=== PATIENT | female | born 1990 | race Caucasian/White ===

== ENCOUNTER 2016-09-26 08:50 | Emergency (ER) | payer OTHER ==
--- NOTE | ~2016-09-26 | ER ---
PATIENT'S NAME: MARCO ADAME [facility] AGE: 26 Y [address] ROOM: [place] [id number] LOCATION: ED ADMIT DATE: 09/26/2016 ER/Outpatient Report DISCHARGE DATE: 09/26/2016 FAMILY PHYSICIAN: PHYSICIAN, NO ATTENDING PHYSICIAN: Ramiro Amador CHIEF COMPLAINT: Fever and shaking. HISTORY OF PRESENT ILLNESS: The patient had a pilonidal cyst removed from her gluteal cleft on Wednesday. Since then, she has progressively felt worse and worse. She is noted to have a fever but she has not taken anything for it. She was taking Percocet for the pain but ran out yesterday. She denies any other significant abnormalities at this time. She denies any urinary symptoms such as frequency, urgency, or burning. She has no respiratory complaints such as cough or shortness of breath. No other acute issues. She has felt a little bit nauseated, but has not vomited. PAST MEDICAL HISTORY: Documented on the record and reviewed by me. SOCIAL HISTORY: Documented on the record and reviewed by me. MEDICATIONS: Documented on the record and reviewed by me. ALLERGIES: DOCUMENTED ON THE RECORD AND REVIEWED BY ME. REVIEW OF SYSTEMS: All systems reviewed and negative except as noted in the HPI. PHYSICAL EXAMINATION: VITAL SIGNS: Blood pressure 125/73, pulse 142, respiratory rate 18, temp 102.4, SpO2 is 98% on room air. GENERAL: Age-appropriate female. No obvious pain or distress, sitting upright on the exam chair, crying. NEUROLOGIC: Awake and alert. GCS is 15. No focal deficits. No asymmetry. HEENT: Normocephalic, atraumatic. Eyes are PERRL. Oropharynx is clear and moist. NECK: Supple. Trachea is midline chest heart is regular tachycardia with no obvious murmurs. LUNGS: Clear to auscultation bilateral in all lung cates. PATIENT'S NAME: MARCO ADAME [facility] AGE: 26 Y [address] ROOM: [place], [place] [address] LOCATION: [facility] ADMIT DATE: 09/26/2016 ER/Outpatient Report DISCHARGE DATE: 09/26/2016 FAMILY PHYSICIAN: PHYSICIAN, NO ATTENDING PHYSICIAN: Ramiro Amador ABDOMEN: Soft, nontender, and nondistended. No rebound or guarding. BACK: Back is normal to inspection and palpation no spinal or CVA tenderness. The gluteal cleft was examined. The surgical site excision was noted and found to be with minimal drainage, no appreciable surrounding erythema. Her skin is all warm secondary to fever no focal findings. No fluctuance associated with it. The extremities are warm and well perfused. No edema or deformities. SKIN: Clean, dry, intact. It is very warm throughout. LABS AND X-RAYS: Procalcitonin 0.11. Urinalysis 25 leukocytes, 15 ketones one urobilinogen 10 blood micro with 20-50 WBCs, 10-20 epithelials 0-2 RBCs, few bacteria. Urine HCG was negative. Influenza A and B are negative. CBC with white count of 7.7, hemoglobin 15.2, and platelets of 210. INR is 1. Blood cultures are pending. CMS sodium is 134, potassium 3.7, chloride is 102, CO2 is 20, LFTs are slightly elevated with an alkaline phosphatase of 281, AST of 54, ALT is 135, GFR is 60, total bilirubin is 0.5. Lactate is 1.6. IMPRESSION: 1. Fever of undetermined etiology. 2. Transaminitis, mild. EMERGENCY DEPARTMENT COURSE: The patient was seen and evaluated as above. She was given Tylenol and ibuprofen for symptoms in addition to 2 L of normal saline. She was feeling much better. She has no hepatobiliary complaints at this time. Recommend close followup of that issue. I do not believe that she is septic from the recent abscess. Her presentation is most consistent with a viral illness. Recommend antipyresis and adequate volume rehydration. She was given a prescription for some [place] and Zofran to have at home. She needs to follow up with PCP as needed. She was given 50 mcg of fentanyl for pain and Zofran for nausea and was feeling much better. MD LAVONNE BRANDON/daniel /[id number] d: 09/26/16 1722 t: 09/29/16 1123, OUTPATIENT REPORT
[~2016-09-26 08:50] MED LIST: ACETAMINOPHEN325 MG PO; MOTRIN800 MG PO; PERCOCET 5-3251 EACH PO; PRENATAL 1+1)(P1 TAB PO
[2016-09-26 09:53] LABS: HEMATOCRIT 44.9 % (33.0-46.0); HEMOGLOBIN 15.2 g/dL (11.0-15.0); MCH 32.5 pg (27.0-34.0); MCHC 33.9 gm/dL (32.0-36.5); MCV 95.9 fl (83.0-98.0); MPV 10.5 fl (9.4-12.4); PLATELET COUNT 210 K/uL (150-450); RBC 4.68 M/uL (3.50-5.00); RDW-CV 13.5 % (11.9-14.6); WBC 7.7 K/uL (4.0-11.0)
[2016-09-26 09:57] LABS: BILIRUBIN URINE NEGATIVE (NEGATIVE); BLOOD URINE 10 /UL (NEGATIVE); COLOR URINE YELLOW (YELLOW); GLUCOSE URINE NEGATIVE (NEGATIVE); KETONE URINE 15 mg/dL (NEGATIVE); LEUKOCYTES URINE 25 /UL (NEGATIVE); NITRITE URINE NEGATIVE (NEGATIVE); PROTEIN URINE 30 mg/dL (NEGATIVE); SPEC GRAVITY URINE 1.015 (1.003-1.035); UROBILINOGEN URINE 1 mg/dL (NORMAL)
[2016-09-26 09:58] LABS: TURBIDITY URINE CLEAR (CLEAR)
[2016-09-26 10:03] LABS: INR - (THERAPEUTIC) 1.05 (0.92-1.07); PTT 36 SECONDS (25-32)
[2016-09-26 10:03] LABS: RBC URINE 0-2 #/HPF (NEGATIVE); WBC URINE 20-50 #/HPF (NEGATIVE)
[2016-09-26 10:04] LABS: AMORPHOUS URINE 1+ (NEGATIVE); BACTERIA URINE FEW (NEGATIVE); MUCUS URINE 1+ (NEGATIVE)
[2016-09-26 10:11] LABS: ALBUMIN 3.7 gm/dL (3.5-5.0); ALK PHOS 281 IU/L (33-138); ALT 135 IU/L (12-78); ANION GAP 15.7 (10.0-19.0); AST 54 IU/L (10-40); BLOOD UREA NITROGEN 11 mg/dL (6-24); CALCIUM 8.5 mg/dL (8.5-10.5); CHLORIDE 102 mMol/L (96-110); CO2 20 mMol/L (22-32); CREATININE 0.9 mg/dL (0.5-1.1); ESTIMATED GFR (MDRD EQUATION) > 60; POTASSIUM 3.7 mMol/L (3.7-5.1); SODIUM 134 mMol/L (135-145); TOTAL BILIRUBIN 0.5 mg/dL (0.0-1.5); TOTAL PROTEIN 8.2 g/dL (6.0-8.4)
[2016-09-26 10:14] LABS: ABSOLUTE NEUTROPHIL CT (ANC) 6.3 K/uL (1.8-7.8); BANDED NEUTROPHIL # 1.5 K/uL (0.0-0.1); BANDED NEUTROPHILS % 19 %; LYMPHOCYTE # 0.5 K/uL (0.8-4.0); LYMPHOCYTE % 7 %; MONOCYTE # 0.5 K/uL (0.0-1.0); SEGMENTED NEUTROPHIL # 4.9 K/uL (1.8-7.8); SEGMENTED NEUTROPHIL % 63 %
== END 2016-09-26 11:24 | disposition disaster alternative care site (69) ==
LOC: GMED 08:50
PROVIDERS: Emergency Medicine
DX: R50.9 Fever, unspecified (principal); R74.0 Nonspecific elevation of levels of transaminase and lactic acid dehydrogenase [LDH]; Z72.89 Other problems related to lifestyle
CPT/HCPCS: J2001; J2405; J3010; J7030